=== PATIENT | female | born 1985 | race Caucasian/White ===

== ENCOUNTER 2017-01-24 15:16 | Emergency (ER) ==
--- NOTE | 2017-01-24 16:16 | PROVIDER DOCUMENTATION ---
HPI-Rash/Wound/ReCheck - General Source: patient, family - History of Present Illness-Dermatology Location: reports: genitalia Quality: reports: painful Severity: reports: moderate Onset/Duration: reports: 2 days ago Timing: reports: still present Locality of Occurance: Home Similar Symptoms Previously?: No Recently seen or treated by another doctor?: No <Nirmala Gonsalez - Last Filed: 01/24/17 16:27> <Anitha Son - Last Filed: 01/24/17 17:57> - General Chief Complaint: Abscess Stated Complaint: UTI SX Time Seen by Provider: 01/24/17 16:04 Allergies/Adverse Reactions: Allergies Allergy/AdvReac Type Severity Reaction Status Date / Time acetaminophen Allergy SHORTNESS Verified 01/24/17 15:32 [From Lorcet (hydrocodone)] OF BREATH hydrocodone bitartrate * Allergy SHORTNESS Verified 01/24/17 15:32 [From Lorcet (hydrocodone)] OF BREATH Latex, Natural Rubber Allergy RASH Verified 01/24/17 15:32 Sulfa (Sulfonamide Allergy RASH Verified 01/24/17 15:32 Antibiotics) Home Medications: Home Medication List Medication Instructions Recorded Confirmed Last Taken Type Clindamycin [Cleocin] 150 mg PO Q6HR #30 capsule 01/24/17 Unknown Rx Gabapentin [Neurontin] 800 mg PO TID 01/24/17 01/24/17 01/24/17 History Hydroxyzine 50 mg PO BID PRN 01/24/17 01/24/17 01/24/17 History Levothyroxine [Synthroid] 50 microgm PO DAILY 01/24/17 01/24/17 01/24/17 History Metformin [Glucophage] 500 mg PO DAILY 01/24/17 01/24/17 01/24/17 History Venlafaxine HCl [Effexor] 37.5 mg PO BID 01/24/17 01/24/17 01/24/17 History - History of Present Illness-Dermatology Nature of Presenting Problem: Pt reports to er with cc of vaginal abscess x 2 days painful in nature. Requesting test reports last menstrual in October 2016. (Nirmala Gonsalez) Review of Systems - Adult - REVIEW OF SYSTEMS - ADULT Constitutional: denies: chills, fever, fatique Eyes: reports: no symptoms reported Ears, Nose, Mouth & Throat: reports: no symptoms reported Cardiovascular: denies: chest pain, irregular heart rate, orthopnea Respiratory: reports: no symptoms reported Gastrointestinal: reports: no symptoms reported Genitourinary: reports: no symptoms reported Musculoskeletal: reports: no symptoms reported Integumentary: reports: see HPI, skin sores/ulcer. denies: mole changes, nail changes, skin thickening Neurological: reports: no symptoms reported Psychiatric: reports: no symptoms reported Endocrine: reports: no symptoms reported Hematologic/Lymphatic: reports: no symptoms reported Allergic/Immunologic: reports: no symptoms reported All Other Systems: Reviewed and Negative <Nirmala Gonsalez - Last Filed: 01/24/17 16:27> Past History - Adult - PAST MEDICAL HISTORY-ADULT Review of Records: reports: Nursing Assessment Review Major Childhood Illnesses: reports: denies history Cardiovascular: reports: denies history Psychiatric: reports: depression Endocrine/Immune: reports: Diabetes, thyroid disorder - IMMUNIZATION STATUS Childhood Immunizations: See Nurse Assessment Flu Vaccine: See Nurse Assessment - FAMILY HISTORY Family History: reviewed, not pertinent - SOCIAL HISTORY Smoking: denies Substance Use: none/never <Nirmala Gonsalez - Last Filed: 01/24/17 16:27> - PAST MEDICAL HISTORY-ADULT Major Childhood Illnesses: reports: denies history Psychiatric: reports: anxiety, depression - PRIOR SURGERIES/PROCEDURES Surgical/Procedure History: reports: other (wisdom teeth) - IMMUNIZATION STATUS Childhood Immunizations: See Nurse Assessment Flu Vaccine: See Nurse Assessment <Anitha Son - Last Filed: 01/24/17 17:57> Physical Exam-General - PHYSICAL EXAM-ADULT Initial Vital Signs Reviewed: Yes - CONSTITUTIONAL General Appearance: appears well, alert, no apparent distress, obese, anxious - EYES Eyes: PERRL/EOMI, pink conjunctivae - HEAD, EARS, NOSE, MOUTH & THROAT HENMT: normocephalic/atraumatic, moist mucous membranes - NECK Neck: non-tender, full range of motion, supple - RESPIRATORY Respiratory: chest non-tender, lungs clear, normal breath sounds - CARDIOVASCULAR Cardiovascular: regular rate, rhythm, no edema - GASTROINTESTINAL (ABDOMEN) Abdominal Exam: normal bowel sounds, non tender, soft - GENITOURINARY Female Genitalia/Pelvic Exam: external exam normal, other (tenderness to right barthlin's cyst area but no abscess with loculated pus present) - MUSCULOSKELETAL Back Exam: normal inspection, no CVA tenderness, no vertebral tenderness Extremity: normal gait, normal inspection - SKIN Integumentary: normal color, normal turgor, warm/dry - NEUROLOGIC Neurologic: grossly normal, no motor/sensory deficits - PSYCHIATRIC Psych/Mental Status: anxious <Anitha Son - Last Filed: 01/24/17 17:57> Progress <Nirmala Gonsalez - Last Filed: 01/24/17 16:27> <Anitha Son - Last Filed: 01/24/17 17:57> - PLAN OF CARE/RESULTS Progress/Plan/Lab Results: Orders Category Date Time Status ED: Urine Bedside ORDERED Care 01/24/17 16:28 Active Vital Signs - 24 hr 01/24/17 15:25 Temperature 99.1 F Pulse Rate 73 Respiratory 18 Rate Blood Pressure 119/72 O2 Sat by Pulse 100 Oximetry (Nirmala Gonsalez) Vital Signs Temp Pulse Resp BP Pulse Ox 01/24/17 15:25 99.1 F 73 18 119/72 100 acetaminophen [From Lorcet (hydrocodone)] Allergy (Verified 01/24/17 15:32) SHORTNESS OF BREATH hydrocodone bitartrate * [From Lorcet (hydrocodone)] Allergy (Verified 01/24/17 15:32) SHORTNESS OF BREATH Latex, Natural Rubber Allergy (Verified 01/24/17 15:32) RASH Sulfa (Sulfonamide Antibiotics) Allergy (Verified 01/24/17 15:32) RASH Gabapentin [Neurontin] 800 mg PO TID 01/24/17 Hydroxyzine 50 mg PO BID PRN 01/24/17 Levothyroxine [Synthroid] 50 microgm PO DAILY 01/24/17 Metformin [Glucophage] 500 mg PO DAILY 01/24/17 Venlafaxine HCl [Effexor] 37.5 mg PO BID 01/24/17 Laboratory 01/24/17 01/24/17 16:55 16:55 Urine Source CLEAN CATCH Urine Color [place] Urine Clarity CLEAR Urine pH 5.0 Ur Specific [place] 1.020 Urine Protein TRACE A Urine Ketones 1+(Small) A Urine Blood TRACE Urine Nitrite NEGATIVE Urine Bilirubin NEGATIVE Urine Urobilinogen NORMAL Urine Microscopic RBC <10 Urine WBC 1+ A Urine Microscopic WBC <10 Ur Epithelial Cells <10 Urine Bacteria 1+ Urine Glucose NEGATIVE Urine Test POSITIVE Orders Category Date Time Status ED: Urine Bedside ORDERED Care 01/24/17 16:28 Inactive TEST-URINE [PREG] Stat Lab 01/24/17 16:[address] W/POSS RFLX CULT [URINALYSIS] Stat Lab 01/24/17 16:55 Completed URINE CULTURE [RM] Routine Lab 01/24/17 17:41 Ordered (Anitha Son) Departure <Nirmala Gonsalez - Last Filed: 01/24/17 16:27> - Departure Time of Disposition Order: 17:52 Certified Medical Emergency: Emergent <Anitha Son - Last Filed: 01/24/17 17:57> - Departure DIAGNOSIS: Bartholin gland cyst Disposition: HOME 01 Condition: Good Additional Instructions: ED Follow Up Instructions: You have been treated by a care provider in the Emergency Department. These instructions are being provided to you so you can have an understanding of how to care for yourself upon discharge. Upon discharge from the Emergency Department, you are responsible for making arrangements for follow-up care by a physician of your choice. Take all prescribed medications as directed. Return to the Emergency Department immediately for any new or worsening symptoms. You may call the Physician Referral phone number at [phone] to obtain a list of Physicians who are taking new patients. Prescriptions: Clindamycin [Cleocin] 150 mg PO Q6HR #30 capsule Attestation - Scribe Verification/Attestation Scribe:: Nirmala Gonsalez Acting as Scribe for:: Anitha Son Scribe documention review:: This chart was documented by a scribe and accurately reflects the service the provider performed and the decisions made by the provider. <Nirmala Gonsalez - Last Filed: 01/24/17 16:27> Physician Attestation
[2017-01-24 17:29] LABS: URINE SOURCE CLEAN CATCH
[2017-01-24 17:35] LABS: BILIRUBIN URINE NEGATIVE (NEGATIVE); BLOOD URINE TRACE (NEGATIVE); CLARITY CLEAR (CLEAR); COLOR AMBER; GLUCOSE URINE NEGATIVE (NEGATIVE); LEUKOCYTES URINE 1+ (NEGATIVE); NITRITE URINE NEGATIVE (NEGATIVE); PROTEIN URINE TRACE mg/dL (NEGATIVE); UROBILINOGEN URINE NORMAL
[2017-01-24 17:41] LABS: URINE CULTURE PL NEEDED? YES; URINE EPITHELIAL CELLS <10 /HPF (<10); URINE RBC <10 /HPF (<10); URINE WBC <10 /HPF (<10)
[2017-01-24 18:14] VITALS: BP 130/74
== END 2017-01-24 18:13 | disposition home or self-care (01) ==
LOC: P.ED 15:16
DX: O34.80 Maternal care for other abnormalities of pelvic organs, unspecified trimester (principal); N75.0 Cyst of Bartholin's gland; O24.919 Unspecified diabetes mellitus in pregnancy, unspecified trimester; O99.280 Endocrine, nutritional and metabolic diseases complicating pregnancy, unspecified trimester; O99.340 Other mental disorders complicating pregnancy, unspecified trimester; Z79.899 Other long term (current) drug therapy
CPT/HCPCS: 81001; 81025; 87088; 99283